=== PATIENT | male | born 1955 | race Caucasian/White ===

== ENCOUNTER 2023-05-07 08:57 | Inpatient (IN) ==
--- NOTE | 2023-05-07 09:18 | ED.PDOC ---
General ED Provider: Dr. AMISHA LORD DO Chief Complaint: GI Bleed Stated Complaint: Patient is a 67 yo M here for LGIB Patient arrives afebrile and vitally stable by POV with He reports they are on vacation from [facility] He had food poisoning last night and now has BM's that are loose and bloody He has abdominal cramping He reports hx of diverticulitis without abdominal surgeries Last colonoscopy 4 years ago was uneventful Patient denies falls or injureis No new medications He does not smoke, drink alcohol or take motrin or tylenol regularly Patient stable NKDA Time Seen by Provider: 05/07/23 09:08 Nursing and Triage Documentation Reviewed and Agree: Yes What is Opioid Naive?: *Opioid Naive implies the patient is not already taking opioids or not chronically receiving opioids on a daily basis. *PRN dosing is not "usually" associated with tolerance. *Patients are at higher risk of over-sedation and aspiration. What is Opioid Tolerant?: *Opioid Tolerance implies less than the expected response to an opioid. *Acquired tolerance is defined by the patient taking 60mg of oral morphine daily (or equianalgesic dose of another opioid) for 1 week or more. *Often associated with chronic pain. *May take more than usual dose to achieve desired pain control. Review of Systems Review Of Systems Constitutional: Denies Chills or Fever Eyes: Denies Blindness or Vision change Ears, Nose, Mouth, Throat: Denies Ear pain or Nose pain Respiratory: Denies Cough or Wheezing Cardiac: Denies Palpitations or Syncope GI: Reports Diarrhea, Nausea, Rectal bleeding and Other (abdominal cramping); Denies Abdominal pain or Vomiting : Denies Burning or Discharge Musculoskeletal: Denies Back pain or Joint pain Skin: Reports No symptoms Neurological: Reports No symptoms Endocrine: Reports No symptoms Hematologic/Lymphatic: Reports No symptoms All Other Systems: Reviewed and Negative Physical Exam Physical Exam Appearance: Reports Well-appearing, Well-nourished and Obese Ill-appearing: Not Applicable Pain Distress: Mild Eyes: Reports JOSE, EOMI and Conjunctiva clear ENT: Reports Ears normal, Nose normal and Oropharynx normal Neck: Supple Respiratory: Reports Airway patent and Breath sounds clear; Denies Wheezes Cardiovascular: Reports RRR and Pulses normal GI/: Reports Soft, Nontender and Other (no fluid wave, no gauring no peritonitis, diffuse ttp, no skin changes ) Musculoskeletal: Reports ROM intact; Denies No edema Skin: Reports Warm and Dry Neurological: Reports Sensation intact and Motor intact Psychiatric: Reports Affect appropriate and Mood appropriate Course Course 05/07/23 09:15 05/07/23 09:15 Orders, Labs, Meds: Lab Review 05/07/23 05/07/23 09:15 09:15 WBC 13.53 H RBC 5.30 Hgb 14.9 Hct 49.1 MCV 92.6 MCH 28.1 MCHC 30.3 L RDW Coeff of Shayan 14.5 Plt Count 289 Immature Gran % (Auto) 0.3 Neut % (Auto) 85.0 H Lymph % (Auto) 7.8 L [place] % (Auto) 6.4 Eos % (Auto) 0.1 Baso % (Auto) 0.4 Neut # (Auto) 11.5 H Lymph # (Auto) 1.1 [place] # (Auto) 0.9 Eos # (Auto) 0.0 Baso # (Auto) 0.1 Immature Gran # (Auto) 0.0 PT 10.3 INR 0.99 APTT 23.3 L Sodium 139.1 Potassium 4.30 Chloride 103.1 Carbon Dioxide 27.9 Anion Gap 12.40 BUN 29.2 H Creatinine 1.65 H Estimated GFR (MDRD) 42.00 BUN/Creatinine Ratio 17.69 Glucose 173.8 H Lactic Acid 1.56 Calcium 9.71 Total Bilirubin 0.81 AST 32.8 ALT 47.0 Alkaline Phosphatase 177.4 H Total Protein 8.24 H Albumin 4.71 Globulin 3.53 Albumin/Globulin Ratio 1.33 Lipase 1346.2 H Blood Type A POSITIVE A POSITIVE Antibody Screen Negative Orders Category Date Time Status ADMIT PATIENT INPATIENT .TO [facility] (MONITORED BED) ADMISSION 05/07/23 11:28 Active INTAKE & OUTPUT Q8HR CARE 05/07/23 09:04 Active NPO REMINDER: IMAGING ONCE CARE 05/07/23 09:04 Completed TELEMETRY MONITORING TELE CARE 05/07/23 11:28 Active VITAL SIGNS Q8HR CARE 05/07/23 09:04 Active BLOOD CULTURE Stat LAB 05/07/23 11:15 Ordered CBC W/ AUTO DIFF DAILY@0600 LAB 05/08/23 06:00 Ordered CBC W/ AUTO DIFF DAILY@0600 LAB 05/09/23 06:00 Ordered CBC W/ AUTO DIFF Stat LAB 05/07/23 09:15 Completed COMPREHENSIVE METABOLIC PANEL DAILY@0600 LAB 05/08/23 06:00 Ordered COMPREHENSIVE METABOLIC PANEL DAILY@0600 LAB 05/09/23 06:00 Ordered COMPREHENSIVE METABOLIC PANEL Stat LAB 05/07/23 09:15 Completed COVID [SARS COV-2 RNA RAPID BALJINDER] Stat LAB 05/07/23 11:25 Ordered LACTIC ACID Stat LAB 05/07/23 09:15 Completed LIPASE Stat LAB 05/07/23 09:15 Completed PARTIAL THROMBOPLASTIN TIME Stat LAB 05/07/23 09:15 Completed PT WITH INR Stat LAB 05/07/23 09:15 Completed TYPE AND SCREEN Stat LAB 05/07/23 09:15 Completed Ceftriaxone/D5w 2 gm Premix [Rocephin 2 gm/50 ml D5w] Meds 05/07/23 11:15 Active 2 gm in 50 ml IV ONCE Metronidazole/Sodium Chloride [Flagyl 500 mg/100 ml] Meds 05/07/23 11:15 Active 500 mg in 100 ml IV ONCE Morphine Sulfate [Morphine 4 mg/ml Syringe] Meds 05/07/23 09:18 Discontinued 4 mg IVP ONCE ONE Ondansetron HCl/Pf [Zofran 4 mg/2 ml] Meds 05/07/23 09:18 Discontinued 4 mg IVP ONCE ONE Pantoprazole Sodium [Protonix] Meds 05/07/23 09:08 Discontinued 80 mg IVP ONCE ONE Sodium Chloride 0.9% [Sodium Chloride] 1,000 ml Meds 05/07/23 09:53 Discontinued IV BOLUS RESUSCITATION STATUS Routine OTHERS 05/07/23 09:03 Ordered CTA ANGIO ABD/PELVIS Stat RADS 05/07/23 09:03 Completed Medications Generic Name Dose Route Start Last Admin Trade Name Freq PRN Reason Stop Dose Admin Metronidazole 500 mg in 100 mls @ 100 mls/hr 05/07/23 11:15 Flagyl 500 Mg/100 Ml IV 05/07/23 12:14 ONCE ONE CEFTRIAXONE/D5W 2 GM PREMIX 2 gm in 50 mls @ 100 mls/hr 05/07/23 11:15 Rocephin 2 Gm/50 Ml D5w IV 05/07/23 11:44 ONCE ONE Discontinued Medications Generic Name Dose Route Start Last Admin Trade Name Freq PRN Reason Stop Dose Admin Sodium Chloride 1,000 mls @ 1,000 mls/hr 05/07/23 09:53 05/07/23 10:20 Sodium Chloride IV 05/07/23 10:52 1,000 mls/hr BOLUS ONE Administration Morphine Sulfate 4 mg 05/07/23 09:18 05/07/23 09:32 Morphine Sulfate 4 Mg/Ml Syringe IVP 05/07/23 09:19 4 mg ONCE ONE Administration Ondansetron HCl 4 mg 05/07/23 09:18 05/07/23 09:33 Ondansetron Hcl/Pf 4 Mg/2 Ml Sdv IVP 05/07/23 09:19 4 mg ONCE ONE Administration Pantoprazole Sodium 80 mg 05/07/23 09:08 05/07/23 09:32 Pantoprazole Sodium 40 Mg Vial IVP 05/07/23 09:09 80 mg ONCE ONE Administration Vital Signs: Temp Pulse Resp BP Pulse Ox 05/07/23 09:10 98.4 F 63 17 164/97 H 94 L MDM: Patient is a 67 yo M here for abdominal cramping and concern for diverticulitis Patient afebrile and vitally stable Hx from patient chart review by me Exam reassuring 3+ labs and 1 CTA abd result reviewed by me I consulted Hospitalist SHERYL Lucio agrees with admission and treatment Patietn and agree with plan WDX: Diverticulitis, pancreatitis, enteritis, bloody stool, renal calculi, leukocytosis, discomfort acute high complexity DDX: I considered SBO, sepsis, abscess but these are less likely SDOH: Patient will improve with therapies and admission Patient admitted stable All questions answered Discharge Plan Discharge Patient Disposition: ADMITTED INPATIENT Discharge Problem: JUSTINE (acute kidney injury), Acute pancreatitis, Renal calculi, Leukocytosis, Enteritis, Sigmoid diverticulitis, Bloody stool Did you review [place] [employer] for ALL controlled substances?: Not Applicable ED Provider: AMISHA LORD Condition: Good Physician Progress Note: []
[2023-05-07 09:22] LABS: BASOPHILS # (AUTO) 0.1 K/uL (0-0.2); BASOPHILS % (AUTO) 0.4 % (0.0-3.0); EOSINOPHILS % (AUTO) 0.1 % (0.0-7.0); HEMATOCRIT 49.1 % (42.0-52.0); HEMOGLOBIN 14.9 g/dl (14.0-18.0); IMMATURE GRANULOCYTE % (AUTO) 0.3 % (0.0-5.0); LYMPHOCYTES # (AUTO) 1.1 K/uL (0.60-3.4); LYMPHOCYTES % (AUTO) 7.8 (10.0-50.0); MEAN CORPUSCULAR HEMOGLOBIN 28.1 pg (27.0-31.0); MEAN CORPUSCULAR HGB CONC 30.3 (31.8-35.4); MEAN CORPUSCULAR VOLUME 92.6 fl (80.0-94.0); MONOCYTES # (AUTO) 0.9 K/uL (0.4-2.0); MONOCYTES % (AUTO) 6.4 (0-10); NEUTROPHILS # (AUTO) 11.5 K/ul (2.0-6.9); PLATELET COUNT 289 10^3/uL (140-440); RDW COEFFICIENT OF VARIATION 14.5 % (11.6-14.8); WHITE BLOOD COUNT 13.53 K/ul (4.2-10.2)
[2023-05-07] MEDS: MORPHINE 4 MG/ML SYRINGE IVP ONE (09:32)
[2023-05-07] MEDS: PROTONIX IVP ONE (09:32)
[2023-05-07] MEDS: ZOFRAN 4 MG/2 ML IVP ONE (09:33)
[2023-05-07 09:37] LABS: ALBUMIN 4.71 g/dL (3.5-5.0); ALKALINE PHOSPHATASE 177.4 U/L (56-119); ASPARTATE AMINO TRANSFERASE 32.8 U/L (17-59); BILIRUBIN,TOTAL 0.81 mg/dL (0.2-1.3); BLOOD UREA NITROGEN 29.2 mg/dL (9-20); CALCIUM 9.71 mg/dL (8.4-10.2); CARBON DIOXIDE 27.9 mmol/L (22-30.0); CHLORIDE 103.1 mmol/L (98-107); CREATININE 1.65 mg/dL (0.60-1.10); GLUCOSE 173.8 mg/dL (74-106); LIPASE 1346.2 U/L (23-300); PARTIAL THROMBOPLASTIN TIME 23.3 SEC (23.9-40.0); POTASSIUM 4.3 mmol/L (3.5-5.1); PROTHROMBIN TIME 10.3 SEC (9.3-11.0); SODIUM 139.1 mmol/L (134.5-145); TOTAL PROTEIN 8.24 g/dL (6.3-8.2)
[2023-05-07] MEDS: SODIUM CHLORIDE 1,000 ML IV ONE (10:20)
--- NOTE | 2023-05-07 11:03 | CT ---
EXAM: CTA ABDOMEN AND PELVIS HISTORY: Lower GI bleed COMPARISON: None available TECHNIQUE: Axial CTA of the abdomen and pelvis without and with IV contrast. Sagittal and coronal re formats were obtained. FINDINGS: There is no evidence of active gastrointestinal bleeding. No abnormal bowel dilation is identified. Some fluid filled loops of small bowel are noted. There is wall thickening of the colon extending f rom the distal transverse colon through sigmoid colon which is much more prominent at the proximal si gmoid colon. Diverticulosis is identified. The appendix is been removed. Mild bilateral lower lobe atelectasis. The heart is enlarged. The liver, gallbladder, spleen, adrenals, and pancreas are normal in appearance. Bilateral renal stephany culi are seen measuring up to 2 mm on the right and 3 mm on the left. No hydronephrosis. No lymphadenopathy is seen. No free or free fluid is seen. There is no abdominal aortic aneurysm. M inimal abdominal aortic atherosclerotic plaque is seen. The celiac, superior mesenteric and renal ar teries are widely patent. The inferior mesenteric artery is patent. The bilateral common, external and internal iliac arteries are widely patent. There is a probable bone island of the left lower and right hip prosthesis. Moderate left hip osteoarthritis. There is multilevel degenerative disc disea se and facet arthropathy. IMPRESSION: No evidence of active gastrointestinal bleeding. Wall thickening of the distal transverse through sigmoid colon suggesting colitis. There is much mor e prominent wall thickening of the proximal sigmoid colon. Follow-up to resolution is recommended to exclude a mass. Diverticulosis. Suggestion of mild enteritis. All CT scans are performed using dose optimization techniques as appropriate to the performed exam an d include at least one of the following: Automated exposure control, adjustment of the mA and/or kV according t o size, and the use of iterative reconstruction technique.
[2023-05-07 11:57] LABS: SARS COV-2 RNA RAPID NAAT NEGATIVE (NEGATIVE)
[2023-05-07] MEDS: ACETAMINOPHEN 1,000 MG/100 ML BAG IV ONE (12:15)
[2023-05-07] MEDS: ROCEPHIN 2 GM/50 ML D5W 2 GM/50 ML BAG IV ONE (12:15)
[2023-05-07] MEDS ORDERED: ZOFRAN 4 MG/2 ML IVP PRN (12:43)
[2023-05-07] MEDS ORDERED: TYLENOL PO PRN (12:43)
[2023-05-07] MEDS: FLAGYL 500 MG/100 ML 500 MG/100 ML BAG IV ONE (12:50)
--- NOTE | 2023-05-07 13:00 | PCM ---
Date of Service Date Seen by Provider: 05/07/23 Time Seen by Provider: 13:00 Admit Day/Time Admission Date: 05/07/23 Admission Time: 11:28 Reason for Admission Chief Complaint: PANCREATITIS Hospital Provider Hospital Provider: STORMY WASHINGTON PA-C, [facility] History of Present Illness History of Present Illness: Patient is a 67 year old male from out of town who presented to ER with abdominal pain and bloody stools. He is visiting from [facility] to go to the [facility]. He states middle of the night last night he started with some nausea and bloody diarrhea. He had lower quadrant pain as well. This is similar to about 4 years ago when he had colitis or diverticulitis. Last colonoscopy in past 2-3 years was normal per patient. In the ER he was found to have colitis of sigmoid area. Pain improved with IV pain meds. Lipase elevated. He was given rocephin and flagyl. Case Discussed With Case Discussed With: Patient's case was discussed with the ER Physicians, Dr. Tapia. [facility] Medical History History of TIA (transient ischemic attack) Z86.73 - Personal history of transient ischemic attack (TIA), and cerebral infarction without residual deficits (ICD-10) Hypothyroidism E03.9 - Hypothyroidism, unspecified (ICD-10) Hypercholesteremia E78.00 - Pure hypercholesterolemia, unspecified (ICD-10) Hypertension I10 - Essential (primary) hypertension (ICD-10) ADD (attention deficit disorder) F98.8 - Other specified behavioral and emotional disorders with onset usually occurring in childhood and adolescence (ICD-10) Surgical History History of lateral meniscus repair of left knee Z98.890 - Other specified postprocedural states (ICD-10) Hx of appendectomy Z90.49 - Acquired absence of other specified parts of digestive tract (ICD- 10) History of Achilles tendon repair Z98.890 - Other specified postprocedural states (ICD-10) History of right hip replacement Z96.641 - Presence of right artificial hip joint (ICD-10) History of repair of anterior cruciate ligament of left knee Z98.890 - Other specified postprocedural states (ICD-10) Family History FATHER Diabetes Mother Neurological abnormality Social History Smoking and tobacco status: Former smoker Quit status: quit date established Allergies Allergies Allergy/AdvReac Type Severity Reaction Status Date / Time No Known Allergies Allergy Unverified 05/07/23 09:19 Current Medications Home Medications aspirin 81 mg chewable tablet 81 mg PO DAILY 05/07/23 [History Confirmed 05/07/23 Last Taken Unknown] atorvastatin 80 mg tablet (Lipitor) 80 mg PO DAILY 05/07/23 [History Confirmed 05/07/23 Last Taken Unknown] clobetasol 0.05 % topical cream 1 applic topical DAILY 05/07/23 [History Confirmed 05/07/23 Last Taken Unknown] cyanocobalamin (vitamin B-12) 1,000 mcg capsule 1,000 mcg PO DAILY 05/07/23 [History Confirmed 05/07/23 Last Taken Unknown] dextroamphetamine sulfate 15 mg capsule,extended release 15 mg PO DAILY 05/07/23 [History Confirmed 05/07/23 Last Taken Unknown] levothyroxine 25 mcg capsule 25 mcg PO DAILY 05/07/23 [History Confirmed 05/07/23 Last Taken Unknown] lisinopril 10 mg tablet 10 mg PO DAILY 05/07/23 [History Confirmed 05/07/23 Last Taken Unknown] omega 9-ehk-mgb-fish oil 1,000 mg (120 mg-180 mg) capsule (Fish Oil) 1 cap PO DAILY 05/07/23 [History Confirmed 05/07/23 Last Taken Unknown] triamcinolone acetonide 0.1 % topical cream 1 applic topical DAILY 05/07/23 [History Confirmed 05/07/23 Last Taken Unknown] Home Acetaminophen (Acetaminophen 325 Mg Tablet) 650 mg PO Q4H PRN PRN Reason: Mild Pain Metronidazole (Flagyl 500 Mg/100 Ml) 500 mg in 100 mls @ 100 mls/hr IV Q8HR BECKI Stop: 05/10/23 12:59 Last Admin: 05/07/23 13:23 Dose: Not Given CEFTRIAXONE/D5W 1 GM PREMIX (Rocephin 1 Gm/50 Ml D5w) 1 gm in 50 mls @ 100 mls/hr IV DAILY BECKI Stop: 05/11/23 08:59 Lactated Ringer's (Lactated Ringers) 1,000 mls @ 100 mls/hr IV .Q10H [facility] Last Admin: 05/07/23 13:26 Dose: 100 mls/hr Morphine Sulfate (Morphine Sulfate 2 Mg/Ml Syringe) 2 mg IVP Q6H PRN PRN Reason: MODERATE PAIN Ondansetron HCl (Ondansetron Hcl/Pf 4 Mg/2 Ml Sdv) 4 mg IVP Q6H PRN PRN Reason: Nausea / Vomiting Discontinued Medications Sodium Chloride (Sodium Chloride) 1,000 mls @ 1,000 mls/hr IV BOLUS ONE Stop: 05/07/23 10:52 Last Infusion: 05/07/23 12:16 Dose: Infused Metronidazole (Flagyl 500 Mg/100 Ml) 500 mg in 100 mls @ 100 mls/hr IV ONCE ONE Stop: 05/07/23 12:14 Last Admin: 05/07/23 12:50 Dose: 100 mls/hr CEFTRIAXONE/D5W 2 GM PREMIX (Rocephin 2 Gm/50 Ml D5w) 2 gm in 50 mls @ 100 mls/hr IV ONCE ONE Stop: 05/07/23 11:44 Last Admin: 05/07/23 12:15 Dose: 100 mls/hr Acetaminophen (Acetaminophen) 1,000 mg in 100 mls @ 400 mls/hr IV ONCE ONE Stop: 05/07/23 11:58 Last Admin: 05/07/23 12:15 Dose: 400 mls/hr Morphine Sulfate (Morphine Sulfate 4 Mg/Ml Syringe) 4 mg IVP ONCE ONE Stop: 05/07/23 09:19 Last Admin: 05/07/23 09:32 Dose: 4 mg Ondansetron HCl (Ondansetron Hcl/Pf 4 Mg/2 Ml Sdv) 4 mg IVP ONCE ONE Stop: 05/07/23 09:19 Last Admin: 05/07/23 09:33 Dose: 4 mg Pantoprazole Sodium (Pantoprazole Sodium 40 Mg Vial) 80 mg IVP ONCE ONE Stop: 05/07/23 09:09 Last Admin: 05/07/23 09:32 Dose: 80 mg Opioid Naive vs. Tolerant Does Patient Take Opioids?: No Is Patient Opioid Naive?: Yes What is Opioid Naive?: *Opioid Naive implies the patient is not already taking opioids or not chronically receiving opioids on a daily basis. *PRN dosing is not "usually" associated with tolerance. *Patients are at higher risk of over-sedation and aspiration. Is Patient Opioid Tolerant?: No What is Opioid Tolerant?: *Opioid Tolerance implies less than the expected response to an opioid. *Acquired tolerance is defined by the patient taking 60mg of oral morphine daily (or equianalgesic dose of another opioid) for 1 week or more. *Often associated with chronic pain. *May take more than usual dose to achieve desired pain control. Review of Systems Constitutional: Denies Fever or Weakness Head: Reports Normocephalic and Atraumatic Cardiovascular: Denies Chest pain, Chest Pressure or Edema Respiratory: Denies Cough or Shortness of air Gastrointestinal: Reports Nausea, Diarrhea, Hematochezia and Abdominal pain; Denies Vomiting, Black Tarry Stools or Melena Genitourinary: Denies Dysuria or Hematuria Dermatologic: Denies Rashes Neurological: Denies Headache, Dizziness, Syncope or Weakness Physical examination Most Recent Vital Signs: Most Recent Vital Signs Temperature 98.4 F 05/07/23 09:10 Temperature Source Oral 05/07/23 09:10 Pulse Rate 63 05/07/23 09:10 Respiratory Rate 17 05/07/23 09:10 Blood Pressure 164/97 H 05/07/23 09:10 O2 Sat by Pulse Oximetry 94 L 05/07/23 09:10 Height 6 ft 05/07/23 09:10 Weight 233 lb 6.4 oz 05/07/23 09:10 Appearance: Positive Well-appearing, Well-nourished, No Apparent Distress and Alert and Oriented x3 Skin: Positive Froid, Warm, Good Turgor and Good Color; Negative Rashes HEENT: Positive Normocephalic and Atraumatic Neck: Positive Supple and Midline Trachea Chest/Lungs: Positive Clear to Auscultation Bilaterally; Negative Rales, Rhonci or Wheezes Heart: Positive RRR GI/: Positive Soft, Bowel Sounds Normal and Tender (+suprapubic, LLQ. No epigastric pain. ); Negative Nontender or No Distention Extremities: Negative Edema Neurological: Positive Cranial Nerves Intact, Alert, Oriented and Muscle Strength 5/5 in Upper and Lower Extremities Bilaterally Psychiatric: Positive Oriented x4, Appropriate Mood and Appropriate Affect Labs This Visit Labs This Visit: Labs This Visit 05/07/23 05/07/23 05/07/23 09:15 09:15 11:23 WBC 13.53 H RBC 5.30 Hgb 14.9 Hct 49.1 MCV 92.6 MCH 28.1 MCHC 30.3 L RDW Coeff of Shayan 14.5 Plt Count 289 Immature Gran % (Auto) 0.3 Neut % (Auto) 85.0 H Lymph % (Auto) 7.8 L [place] % (Auto) 6.4 Eos % (Auto) 0.1 Baso % (Auto) 0.4 Neut # (Auto) 11.5 H Lymph # (Auto) 1.1 [place] # (Auto) 0.9 Eos # (Auto) 0.0 Baso # (Auto) 0.1 Immature Gran # (Auto) 0.0 PT 10.3 INR 0.99 APTT 23.3 L Sodium 139.1 Potassium 4.30 Chloride 103.1 Carbon Dioxide 27.9 Anion Gap 12.40 BUN 29.2 H Creatinine 1.65 H Estimated GFR (MDRD) 42.00 BUN/Creatinine Ratio 17.69 Glucose 173.8 H Lactic Acid 1.56 Calcium 9.71 Total Bilirubin 0.81 AST 32.8 ALT 47.0 Alkaline Phosphatase 177.4 H Total Protein 8.24 H Albumin 4.71 Globulin 3.53 Albumin/Globulin Ratio 1.33 Lipase 1346.2 H SARS CoV-2 RNA Rapid BALJINDER Negative Blood Type A POSITIVE A POSITIVE Antibody Screen Negative Imaging Imaging: EXAM: CTA ABDOMEN AND PELVIS HISTORY: Lower GI bleed COMPARISON: None available TECHNIQUE: Axial CTA of the abdomen and pelvis without and with IV contrast. Sagittal and coronal reformats were obtained. FINDINGS: There is no evidence of active gastrointestinal bleeding. No abnormal bowel dilation is identified. Some fluid filled loops of small bowel are noted. There is wall thickening of the colon extending from the distal transverse colon through sigmoid colon which is much more prominent at the proximal sigmoid colon. Diverticulosis is identified. The appendix is been removed. Mild bilateral lower lobe atelectasis. The heart is enlarged. The liver, gallbladder, spleen, adrenals, and pancreas are normal in appearance. Bilateral renal calculi are seen measuring up to 2 mm on the right and 3 mm on the left. No hydronephrosis. No lymphadenopathy is seen. No free or free fluid is seen. There is no abdominal aortic aneurysm. Minimal abdominal aortic atherosclerotic plaque is seen. The celiac, superior mesenteric and renal arteries are widely patent. The inferior mesenteric artery is patent. The bilateral common, external and internal iliac arteries are widely patent. There is a probable bone island of the left lower and right hip prosthesis. Moderate left hip osteoarthritis. There is multilevel degenerative disc disease and facet arthropathy. IMPRESSION: No evidence of active gastrointestinal bleeding. Wall thickening of the distal transverse through sigmoid colon suggesting colitis. There is much more prominent wall thickening of the proximal sigmoid colon. Follow-up to resolution is recommended to exclude a mass. Diverticulosis. Suggestion of mild enteritis. Review Statement Review Statement: I have independently reviewed and interpreted the labs/EKGs/imaging that were ordered by the ER provider. I have reviewed all outside records that are available currently in our EMR including imaging/notes/labs from previous visits. Plan Plan: 1. Acute colitis - Rocephin and flagyl, liquid diet, zofran prn for nausea, morphine prn for pain. Discussed repeat colonoscopy in at least 6-8 weeks. 2. Acute pancreatitis in setting of acute colitis - AST/ALT normal. No abnormality noted on CT. Cont fluids and pain control. Repeat lipase in AM. 3. Hypothyroidism - Cont home meds 4. Hyperlipidemia - Cont home meds 5. Hypertension - Cont home meds DVT Prophylaxis: Holding in light of bloody stools Time Spent: Greater than 80 minutes spent with patient, 50% of the time spent with this patient was devoted to counseling and coordination of care. [facility] minutes spent discussing advance care planning. FULL CODE Admit to: Inpatient Discussed Plan of Care with Dr. Brigitte Mart. Medications Medication Orders: Medications Ordered Category Date Time Status Acetaminophen [Tylenol] Meds 05/07/23 12:43 Ordered 650 mg PO Q4H PRN Ceftriaxone/D5w 1 gm Premix [Rocephin 1 gm/50 ml D5w] Meds 05/08/23 09:00 Ordered 1 gm in 50 ml IV DAILY Metronidazole/Sodium Chloride [Flagyl 500 mg/100 ml] Meds 05/07/23 13:00 Ordered 500 mg in 100 ml IV Q8HR Morphine Sulfate [Morphine 2 mg/ml Syringe] Meds 05/07/23 12:43 Ordered 2 mg IVP Q6H PRN Ondansetron HCl/Pf [Zofran 4 mg/2 ml] Meds 05/07/23 12:43 Ordered 4 mg IVP Q6H PRN Ringers Lactated Solution [Lactated Ringers] 1,000 ml Meds 05/07/23 13:00 Ordered IV 100 mls/hr
[2023-05-07 13:14] VITALS: BMI 31.3
[2023-05-07] MEDS: FLAGYL 500 MG/100 ML 500 MG/100 ML BAG IV SCH (13:23)
[2023-05-07] MEDS: LACTATED RINGERS 1,000 ML IV SCH (13:26)
[2023-05-07] MEDS: MORPHINE 2 MG/ML SYRINGE IVP PRN (17:34)
[2023-05-07] MEDS: ZESTRIL PO SCH (19:19)
[2023-05-08 05:09] LABS: BASOPHILS % (AUTO) 0.4 % (0.0-3.0); EOSINOPHILS # (AUTO) 0.2 K/ul (0.0-0.7); EOSINOPHILS % (AUTO) 2.5 % (0.0-7.0); HEMATOCRIT 42.2 % (42.0-52.0); HEMOGLOBIN 13.1 g/dl (14.0-18.0); IMMATURE GRANULOCYTE % (AUTO) 0.2 % (0.0-5.0); LYMPHOCYTES # (AUTO) 1.8 K/uL (0.60-3.4); LYMPHOCYTES % (AUTO) 19.6 (10.0-50.0); MEAN CORPUSCULAR HEMOGLOBIN 28.7 pg (27.0-31.0); MEAN CORPUSCULAR VOLUME 92.3 fl (80.0-94.0); MONOCYTES # (AUTO) 0.7 K/uL (0.4-2.0); MONOCYTES % (AUTO) 7.2 (0-10); NEUTROPHILS # (AUTO) 6.3 K/ul (2.0-6.9); NEUTROPHILS % (AUTO) 70.1 % (42.2-75.2); PLATELET COUNT 252 10^3/uL (140-440); RDW COEFFICIENT OF VARIATION 14.6 % (11.6-14.8); RED BLOOD COUNT 4.57 10^6/ul (4.70-6.10); WHITE BLOOD COUNT 9.02 K/ul (4.2-10.2)
[2023-05-08 05:14] VITALS: RESP 18
[2023-05-08 05:21] LABS: ALANINE AMINOTRANSFERASE 32.9 U/L (0-50); ALBUMIN 3.69 g/dL (3.5-5.0); ALKALINE PHOSPHATASE 109.1 U/L (56-119); ASPARTATE AMINO TRANSFERASE 26.1 U/L (17-59); BILIRUBIN,TOTAL 0.67 mg/dL (0.2-1.3); BLOOD UREA NITROGEN 16.8 mg/dL (9-20); CALCIUM 8.58 mg/dL (8.4-10.2); CARBON DIOXIDE 25.3 mmol/L (22-30.0); CHLORIDE 107.3 mmol/L (98-107); CREATININE 1.1 mg/dL (0.60-1.10); GLUCOSE 98.7 mg/dL (74-106); LIPASE 73.5 U/L (23-300); POTASSIUM 3.98 mmol/L (3.5-5.1); TOTAL PROTEIN 6.63 g/dL (6.3-8.2)
[2023-05-08] MEDS: SYNTHROID PO SCH (08:34)
[2023-05-08] MEDS: LIPITOR PO SCH (08:34)
[2023-05-08] MEDS: ASPIRIN CHEWABLE PO SCH (08:35)
[2023-05-08] MEDS: DEXTROAMPHETAMINE SULFATE 15 MG PO SCH (08:35)
[2023-05-08] MEDS: ROCEPHIN 1 GM/50 ML D5W 1 GM/50 ML BAG IV SCH (08:40)
[2023-05-08 09:55] VITALS: BP 103/56; PULSE 65; TEMP 97.1
--- NOTE | 2023-05-08 11:44 | PCM.PROG ---
Date/Time Seen Date Seen by Provider: 05/08/23 Time Seen by Provider: 08:40 Provider [facility] STORMY WASHINGTON [facility] Chief Complaint Chief Complaint: PANCREATITIS Subjective Subjective: Patient is feeling better today but very tired. He required IV morphine this morning for pain control. Hasn't attempted a diet yet today. Worried about driving home with abd pain. Diarrhea has improved. Labs improved. Objective Appearance: Positive No Apparent Distress and Alert and Oriented x3 Chest/Lungs: Positive Clear to Auscultation Bilaterally; Negative Rales, Rhonci or Wheezes Heart: Positive RRR GI/: Positive Soft, Bowel Sounds Normal, No Distention and Tender (+suprapubic ) Neurological: Positive Cranial Nerves Intact, Alert, Oriented and Muscle Strength 5/5 in Upper and Lower Extremities Bilaterally Vital Signs Vital Signs: Vital Signs: Last 24 Hours 05/07/23 13:05 05/07/23 13:05 05/07/23 15:54 Temperature 97.2 F L Temperature Source Oral Pulse Rate 78 Respiratory Rate 18 Blood Pressure Blood Pressure Mean Blood Pressure Left Arm 146/90 Blood Pressure Location Blood Pressure Position Supine O2 Sat by Pulse Oximetry 97 Oxygen Delivery Method Room Air Room Air Height 6 ft 6 ft Weight 231 lb 231 lb Telemetry Type Telemetry Monitoring Telemetry Heart Rate EKG DE Interval EKG QRS Interval Telemetry Strip Reading 05/07/23 17:51 05/07/23 18:47 05/07/23 19:00 Temperature 98.1 F Temperature Source Temporal Artery Scan Pulse Rate 53 L Respiratory Rate 17 Blood Pressure 171/84 H 174/90 H Blood Pressure Mean 113 118 Blood Pressure Left Arm Blood Pressure Location Right Arm Left Arm Blood Pressure Position Supine Supine O2 Sat by Pulse Oximetry 97 Oxygen Delivery Method Room Air Room Air Height Weight Telemetry Type Remote Telemetry Telemetry Monitoring Continues Telemetry Heart Rate 55 L EKG DE Interval 0.14 EKG QRS Interval 0.09 Telemetry Strip Reading SB 05/07/23 19:23 05/07/23 21:17 05/08/23 01:00 Temperature 97.9 F Temperature Source Temporal Artery Scan Pulse Rate 58 L Respiratory Rate 16 Blood Pressure 149/87 H Blood Pressure Mean 107 Blood Pressure Left Arm Blood Pressure Location Right Arm Blood Pressure Position Supine O2 Sat by Pulse Oximetry 95 Oxygen Delivery Method Room Air Room Air Height Weight Telemetry Type Remote Telemetry Telemetry Monitoring Continues Telemetry Heart Rate 87 EKG DE Interval 0.18 EKG QRS Interval 0.12 H Telemetry Strip Reading SR WITH BBB 05/08/23 01:30 05/08/23 01:36 05/08/23 05:14 Temperature 100.5 F H 98.5 F 97.9 F Temperature Source Temporal Artery Scan Oral Temporal Artery Scan Pulse Rate 68 69 Respiratory Rate 16 18 Blood Pressure 142/88 H 120/76 Blood Pressure Mean 106 90 Blood Pressure Left Arm Blood Pressure Location Right Arm Right Arm Blood Pressure Position Supine Supine O2 Sat by Pulse Oximetry 96 94 L Oxygen Delivery Method Room Air Room Air Room Air Height Weight Telemetry Type Telemetry Monitoring Telemetry Heart Rate EKG DE Interval EKG QRS Interval Telemetry Strip Reading 05/08/23 07:00 05/08/23 09:55 Temperature 97.1 F L Temperature Source Tympanic Pulse Rate 65 Respiratory Rate 18 Blood Pressure 103/56 L Blood Pressure Mean 71 Blood Pressure Left Arm Blood Pressure Location Right Arm Blood Pressure Position Supine O2 Sat by Pulse Oximetry 93 L Oxygen Delivery Method Room Air Height Weight Telemetry Type Remote Telemetry Telemetry Monitoring Continues Telemetry Heart Rate 64 EKG DE Interval 0.16 EKG QRS Interval 0.14 H Telemetry Strip Reading SA w/ BBB Lab Results Lab Results: Lab Results: Last 24 Hours 05/08/23 05/07/23 04:57 11:23 WBC 9.02 RBC 4.57 L Hgb 13.1 L Hct 42.2 D MCV 92.3 MCH 28.7 MCHC 31.0 L RDW Coeff of Shayan 14.6 Plt Count 252 Immature Gran % (Auto) 0.2 Neut % (Auto) 70.1 Lymph % (Auto) 19.6 [place] % (Auto) 7.2 Eos % (Auto) 2.5 Baso % (Auto) 0.4 Neut # (Auto) 6.3 Lymph # (Auto) 1.8 [place] # (Auto) 0.7 Eos # (Auto) 0.2 Baso # (Auto) 0.0 Immature Gran # (Auto) 0.0 Sodium 138.0 Potassium 3.98 Chloride 107.3 H Carbon Dioxide 25.3 Anion Gap 9.38 BUN 16.8 Creatinine 1.10 D Estimated GFR (MDRD) 67.00 BUN/Creatinine Ratio 15.27 Glucose 98.7 D Calcium 8.58 Total Bilirubin 0.67 AST 26.1 ALT 32.9 Alkaline Phosphatase 109.1 D Total Protein 6.63 Albumin 3.69 Globulin 2.94 Albumin/Globulin Ratio 1.25 Lipase 73.5 SARS CoV-2 RNA Rapid BALJINDER Negative Additional Comments Additional Comments: I have independently reviewed and interpreted the labs/EKGs/imaging ordered during this hospital stay. I have reviewed outside records that are available in our EMR that pertain to medical stay including imaging/notes/labs from previous visits. Active Medications Active Medications: Medications Generic Name Dose Route Start Last Admin Trade Name Freq PRN Reason Stop Dose Admin Acetaminophen 650 mg 05/07/23 12:43 Acetaminophen 325 Mg Tablet PO Q4H PRN Mild Pain Aspirin 81 mg 05/08/23 09:00 05/08/23 08:35 Aspirin 81 Mg Tab.Chew PO 81 mg DAILY BECKI Administration Atorvastatin Calcium 80 mg 05/08/23 09:00 05/08/23 08:34 Atorvastatin Calcium 20 Mg Tablet PO 80 mg DAILY BECKI Administration Metronidazole 500 mg in 100 mls @ 100 mls/hr 05/07/23 13:00 05/08/23 05:13 Flagyl 500 Mg/100 Ml IV 05/10/23 12:59 100 mls/hr Q8HR BECKI Administration CEFTRIAXONE/D5W 1 GM PREMIX 1 gm in 50 mls @ 100 mls/hr 05/08/23 09:00 05/08/23 08:40 Rocephin 1 Gm/50 Ml D5w IV 05/11/23 08:59 100 mls/hr DAILY BECKI Administration Lactated Ringer's 1,000 mls @ 100 mls/hr 05/07/23 13:00 05/08/23 08:36 Lactated Ringers IV 100 mls/hr .Q10H BECKI Administration Levothyroxine Sodium 25 mcg 05/08/23 09:00 05/08/23 08:34 Levothyroxine Sodium 25 Mcg Tablet PO 25 mcg DAILY BECKI Administration Lisinopril 10 mg 05/07/23 18:55 05/08/23 08:34 Lisinopril 10 Mg Tablet PO 10 mg DAILY BECKI Administration Morphine Sulfate 2 mg 05/07/23 12:43 05/08/23 06:07 Morphine Sulfate 2 Mg/Ml Syringe IVP 2 mg Q6H PRN Administration MODERATE PAIN Non-Formulary Medication 15 mg 05/08/23 09:00 05/08/23 08:35 Dextroamphetamine Sulfate PO Not Given DAILY BECKI Ondansetron HCl 4 mg 05/07/23 12:43 Ondansetron Hcl/Pf 4 Mg/2 Ml Sdv IVP Q6H PRN Nausea / Vomiting Plan Plan: 1. Acute colitis - Rocephin and flagyl, liquid diet, zofran prn for nausea, morphine prn for pain. Discussed repeat colonoscopy in at least 6-8 weeks. 2. Acute pancreatitis in setting of acute colitis and JUSTINE - AST/ALT normal. No abnormality noted on CT. Lipase normalized. Stop fluids. 3. JUSTINE, in setting of dehydration - Resolved. Stop fluids. 4. Hypothyroidism - Cont home meds 5. Hyperlipidemia - Cont home meds 6. Hypertension - Cont home meds DVT: Lovenox Dispo: likely dc tomorrow Review Statement Review Statement: I have personally discussed and reviewed the patient's visit/currently labs/imaging/decision making with Dr. Mart, my supervising attending. Greater that 50 minutes spent with patient, 50% of the time spent with this patient was devoted to counseling and coordination of care.
[2023-05-08] MEDS: TORADOL IVP PRN (12:24)
[2023-05-08] MEDS: LOVENOX SUBCUT SCH (12:24)
--- NOTE | 2023-05-08 12:32 | DCSUM ---
Admission Date Admission Date: 05/07/23 Discharge Date Discharge Date: 05/08/23 Admission Diagnosis Admission Diagnosis: 1. Acute colitis 2. Acute pancreatitis Discharge Diagnosis Discharge Diagnosis: 1. Acute colitis 2. Acute pancreatitis in setting of acute colitis and JUSTINE - resolved 3. JUSTINE, in setting of dehydration - Resolved 4. Hypothyroidism - Cont home meds 5. Hyperlipidemia - Cont home meds 6. Hypertension - Cont home meds Hospital Provider Hospital Provider: STORMY WASHINGTON PA-C, [facility] Summary of History and Physical Summary of History and Physical: Patient is a 67 year old male from [place] town who presented to ER with abdominal pain and bloody stools. He is visiting from [facility]. He states middle of the night last night he started with some nausea and bloody diarrhea. He had lower quadrant pain as well. This is similar to about 4 years ago when he had colitis or diverticulitis. Last colonoscopy in past 2-3 years was normal per patient. In the ER he was found to have colitis of sigmoid area. Pain improved with IV pain meds. Lipase elevated. He was given rocephin and flagyl. Hospital Course Subjective: Patient was treated with flagyl, rocephin and fluids. He felt better this morning. No baseline Cr or BUN to compare but both were normalized this morning. Lipase and wbc count normal. Vitals stable except mild temp of 100.5 through the night. Discussed with patient staying another day for antibiotics, pain medication, etc. However, he discussed with his and he's ready to head back home. He was able to tolerate PO diet. Will send in augmentin and a few tramadol prn for pain. F/u with pcp. Recommended repeat colonoscopy in 6-8 weeks once this is resolved. Pt agrees to plan of care. Appearance: Pleasant, No Apparent Distress and Alert HEENT: MMM CVS: No Murmur Abdomen: Soft, No Distention and Other (+mild suprapubic tenderness, llq tenderness ) Respiratory: No Dyspnea Extremities: No Edema Vital Signs: Most Recent Vital Signs Temperature 97.1 F L 05/08/23 09:55 Temperature Source Tympanic 05/08/23 09:55 Temperature Source Oral 05/07/23 09:10 Pulse Rate 65 05/08/23 09:55 Respiratory Rate 18 05/08/23 09:55 Blood Pressure 103/56 L 05/08/23 09:55 Blood Pressure Mean 71 05/08/23 09:55 Blood Pressure Left Arm 146/90 05/07/23 13:05 Blood Pressure Location Right Arm 05/08/23 09:55 Blood Pressure Position Supine 05/08/23 09:55 O2 Sat by Pulse Oximetry 93 L 05/08/23 09:55 Oxygen Delivery Method Room Air 05/08/23 09:55 Height 6 ft 05/07/23 15:54 Weight 231 lb 05/07/23 15:54 Telemetry Type Remote Telemetry 05/08/23 07:00 Telemetry Monitoring Continues 05/08/23 07:00 Telemetry Heart Rate 64 05/08/23 07:00 EKG OR Interval 0.16 05/08/23 07:00 EKG QRS Interval 0.14 H 05/08/23 07:00 Telemetry Strip Reading SA w/ BBB 05/08/23 07:00 Imaging: EXAM: CTA ABDOMEN AND PELVIS HISTORY: Lower GI bleed COMPARISON: None available TECHNIQUE: Axial CTA of the abdomen and pelvis without and with IV contrast. Sagittal and coronal reformats were obtained. FINDINGS: There is no evidence of active gastrointestinal bleeding. No abnormal bowel dilation is identified. Some fluid filled loops of small bowel are noted. There is wall thickening of the colon extending from the distal transverse colon through sigmoid colon which is much more prominent at the proximal sigmoid colon. Diverticulosis is identified. The appendix is been removed. Mild bilateral lower lobe atelectasis. The heart is enlarged. The liver, gallbladder, spleen, adrenals, and pancreas are normal in appearance. Bilateral renal calculi are seen measuring up to 2 mm on the right and 3 mm on the left. No hydronephrosis. No lymphadenopathy is seen. No free or free fluid is seen. There is no abdominal aortic aneurysm. Minimal abdominal aortic atherosclerotic plaque is seen. The celiac, superior mesenteric and renal arteries are widely patent. The inferior mesenteric artery is patent. The bilateral common, external and internal iliac arteries are widely patent. There is a probable bone island of the left lower and right hip prosthesis. Moderate left hip osteoarthritis. There is multilevel degenerative disc disease and facet arthropathy. IMPRESSION: No evidence of active gastrointestinal bleeding. Wall thickening of the distal transverse through sigmoid colon suggesting colitis. There is much more prominent wall thickening of the proximal sigmoid colon. Follow-up to resolution is recommended to exclude a mass. Diverticulosis. Suggestion of mild enteritis. Lab Results Last 24 Hours: 05/08/23 04:57 WBC 9.02 RBC 4.57 L Hgb 13.1 L Hct 42.2 D MCV 92.3 MCH 28.7 MCHC 31.0 L RDW Coeff of Shayan 14.6 Plt Count 252 Immature Gran % (Auto) 0.2 Neut % (Auto) 70.1 Lymph % (Auto) 19.6 [place] % (Auto) 7.2 Eos % (Auto) 2.5 Baso % (Auto) 0.4 Neut # (Auto) 6.3 Lymph # (Auto) 1.8 [place] # (Auto) 0.7 Eos # (Auto) 0.2 Baso # (Auto) 0.0 Immature Gran # (Auto) 0.0 Sodium 138.0 Potassium 3.98 Chloride 107.3 H Carbon Dioxide 25.3 Anion Gap 9.38 BUN 16.8 Creatinine 1.10 D Estimated GFR (MDRD) 67.00 BUN/Creatinine Ratio 15.27 Glucose 98.7 D Calcium 8.58 Total Bilirubin 0.67 AST 26.1 ALT 32.9 Alkaline Phosphatase 109.1 D Total Protein 6.63 Albumin 3.69 Globulin 2.94 Albumin/Globulin Ratio 1.25 Lipase 73.5 Discharge Instructions Discharge Planning: Discharge Planning > [address] Brigitte Mart. Discharge Medications: Medications at Discharge (Home Meds & RX) aspirin 81 mg chewable tablet 81 mg PO DAILY 05/07/23 atorvastatin 80 mg tablet (Lipitor) 80 mg PO DAILY 05/07/23 clobetasol 0.05 % topical cream 1 applic topical DAILY 05/07/23 cyanocobalamin (vitamin B-12) 1,000 mcg capsule 1,000 mcg PO DAILY 05/07/23 dextroamphetamine sulfate 15 mg capsule,extended release 15 mg PO DAILY 05/07/23 levothyroxine 25 mcg capsule 25 mcg PO DAILY 05/07/23 lisinopril 10 mg tablet 10 mg PO DAILY 05/07/23 omega [id number]-fish oil 1,000 mg (120 mg-180 mg) capsule (Fish Oil) 1 cap PO DAILY 05/07/23 triamcinolone acetonide 0.1 % topical cream 1 applic topical DAILY 05/07/23 Augmentin Tramadol Discharge Plan Discharge Discharge Orders: Discharge Patient (ONCE); Ordered 05/08/23 Ordered By: STORMY WASHINGTON Activity Restrictions/Additional Instructions: DISCHARGE TO HOME F/U WITH PCP WITHIN 2-3 DAYS FOR RECHECK RECOMMEND COLONOSCOPY AFTER ABOUT 6-8 WEEKS DIET: PROGRESS TOLERATED ACTIVITY: TOLERATED PHARMACY: [facility] Patient Disposition: HOME SELF-CARE Prescriptions: New amoxicillin-pot clavulanate 875-125 mg tablet 1 tab PO BID 10 Days Qty: 20 0RF tramadol 50 mg tablet 50 mg PO Q12H PRN (Reason: moderate pain (scale score 5-6)) Qty: 10 0RF Continued atorvastatin [Lipitor] 80 mg tablet 80 mg PO DAILY lisinopril 10 mg tablet 10 mg PO DAILY dextroamphetamine sulfate 15 mg capsule, extended release 15 mg PO DAILY levothyroxine 25 mcg capsule 25 mcg PO DAILY aspirin 81 mg tablet,chewable 81 mg PO DAILY omega 2-yuj-nxs-fish oil [Fish Oil] 1,000 mg (120 mg-180 mg) capsule 1 cap PO DAILY cyanocobalamin (vitamin B-12) 1,000 mcg capsule 1,000 mcg PO DAILY clobetasol 0.05 % cream 1 applic topical DAILY triamcinolone acetonide 0.1 % cream 1 applic topical DAILY Did you review [place] [employer] for ALL controlled substances?: Not Applicable Discussed opioids are addictive and Narcan is available by prescription or from pharmacy.: No Condition: Good
== END 2023-05-08 14:10 | disposition home or self-care (01) | DRG 391 ==
LOC: ED 08:57 → MEDSURG B 12:14
PROVIDERS: ADMIT Hospitalist; ATTEND Physician Assistant
DX: E78.5 Hyperlipidemia, unspecified; K52.9 Noninfective gastroenteritis and colitis, unspecified; Z20.822 Contact with and (suspected) exposure to COVID-19; N17.9 Acute kidney failure, unspecified; E03.9 Hypothyroidism, unspecified; I10 Essential (primary) hypertension; D72.829 Elevated white blood cell count, unspecified; K57.30 Diverticulosis of large intestine without perforation or abscess without bleeding; K85.90 Acute pancreatitis without necrosis or infection, unspecified